=== PATIENT | male | born 1980 | race Caucasian/White ===

== ENCOUNTER 2024-04-22 07:31 | Day surgery (SDC) | payer OTHER, SELFPAY ==
[2024-02-20 12:45] VITALS: BMI 26.9
[2024-04-11 10:44] VITALS: BMI 25.8
--- NOTE | 2024-04-15 10:31 | PM.HPGS ---
History of Present Illness History of Present Illness Consent: Risks, benefits, and alternatives have been discussed and questions answered. Patient agrees to proceed with procedure. Chief complaint: Neoplasm Screening Narrative: Arturo Garcia is a 44 year old male who is referred for colon cancer screening. [facility] Past Medical History Medical History (Updated 02/13/24 @ 10:16 by Vin Brink MD) BMI 26.0-26.9,adult BMI 27.0-27.9,adult BMI 28.0-28.9,adult Chronic anxiety Colon cancer screening Encounter for screening for other viral diseases Encounter for wellness examination in adult Mild intermittent asthma in adult without complication Mixed hyperlipidemia Total cholesterol 204, triglycerides 56, HDL 65 and LDL 124 on 11/10/2021. cholesterol 231, HDL 68, triglycerides 84, LDL 144 with ratio 3.4 on 02/07/2024. Overweight (BMI 25.0-29.9) Post herpetic neuralgia (09/27/23) right C7 herpes zoster Protein in urine Urinalysis normal on 02/07/2024. Seasonal allergic rhinitis Shift work sleep disorder Tinea corporis Weakness of right upper extremity (~09/2023) Family History Family History (Updated 07/23/19 @ 15:19 by Tatum Garrett MA) Mother Hypertension Father Asthma Social History Social History Smoking status: Never smoker Second hand tobacco smoke exposure: No Alcohol intake: current Drinks per week: 6 Substance use: never Substance use type: does not use Living arrangements: with family Occupation/Education: occupation Gender identity (if verbalized by the patient): Male Spiritual care concerns: No Meds Home Medications and Allergies Home Medications Medication Instructions Recorded Confirmed Type No Home Medications 04/11/24 04/11/24 History Allergies Allergy/AdvReac Type Severity Reaction Status Date / Time No Known Allergies Allergy Verified 04/11/24 10:43 Assessment and Plan Assessment and plan (1) Colon cancer screening: Code(s): Z12.11 - Encounter for screening for malignant neoplasm of colon Status: Acute Assessment and Plan: Colonoscopy with possible biopsy or polypectomy or cautery or injection of substances.
--- NOTE | 2024-04-22 07:06 | WPDANESEPPF ---
Anes - Initial Pre Proc Eval Procedure: Operation Date: 04/22/24 09:00 Proposed Procedures p Screening Colonoscopy - Henrique Mccain MD Date/Time: 04/22/24 07:06 Surgeon: Henrique Mccain MD Pre Op Diagnosis: Neoplasm Screening Patient Data Age: 44 Gender: M Height: 1.8 m Weight: 84 kg Allergies Allergy/AdvReac Type Severity Reaction Status Date / Time No Known Allergies Allergy Verified 04/22/24 07:46 Home Medications Medication Instructions Recorded Confirmed Type cetirizine 10 mg tablet (Zyrtec) 10 mg PO DAILY PRN Allergy Symptoms 04/22/24 04/22/24 History Patient hx anesthesia problems: none Family hx anesthesia problems: none Results Review: All pre-operative results and documents have been reviewed as part of the pre-operative evaluation. [facility] Past Medical History Medical History (Updated 02/13/24 @ 10:16 by Vin Brink MD) BMI 26.0-26.9,adult BMI 27.0-27.9,adult BMI 28.0-28.9,adult Chronic anxiety Colon cancer screening Encounter for screening for other viral diseases Encounter for wellness examination in adult Mild intermittent asthma in adult without complication Mixed hyperlipidemia Total cholesterol 204, triglycerides 56, HDL 65 and LDL 124 on 11/10/2021. cholesterol 231, HDL 68, triglycerides 84, LDL 144 with ratio 3.4 on 02/07/2024. Overweight (BMI 25.0-29.9) Post herpetic neuralgia (09/27/23) right C7 herpes zoster Protein in urine Urinalysis normal on 02/07/2024. Seasonal allergic rhinitis Shift work sleep disorder Tinea corporis Weakness of right upper extremity (~09/2023) Family History Family History (Updated 07/23/19 @ 15:19 by Tatum Garrett MA) Mother Hypertension Father Asthma Social History Social History Smoking status: Never smoker Second hand tobacco smoke exposure: No Alcohol intake: current Drinks per week: 6 Substance use: never Substance use type: does not use Living arrangements: with family Occupation/Education: occupation Gender identity (if verbalized by the patient): Male Spiritual care concerns: No Anes - Eval Final PreProcedure Day of Procedure 04/22/24 07:06 Patient weight: overweight Heart: regular rate and rhythm Lungs: clear to auscultation Airway: Mallampati scale class II Neurological: alert and oriented Last oral intake: >/= 8 hours ASA classification: II Emergent: no Anesthetic plan: proceed Anesthesia type and monitoring: general GIVS and standard monitoring Results Review: All pre-operative results and documents have been reviewed as part of the pre-operative evaluation. Informed Consent: The patient's anesthetic plan and its attendant risks and benefits were discussed with the patient/family/POA. Questions were solicited and answers provided to the satisfaction of the patient/family/POA.
[2024-04-22 07:48] VITALS: BP 109/80; PULSE 60; RESP 16; TEMP 36.7; O2SAT 100
[2024-04-22] MEDS: LACTATED RINGERS 1,000 ML 150 ML IV CONT ×2 (07:56→09:47)
--- NOTE | 2024-04-22 09:20 | PM.HPGS ---
History of Present Illness History of Present Illness Consent: Risks, benefits, and alternatives have been discussed and questions answered. Patient agrees to proceed with procedure. Chief complaint: Neoplasm Screening Narrative: Arturo Garcia is a 44 year old male presents for screening colonoscopy. Patient's current weight appetite and bowel movements are normal. Patient denies abdominal pain. He has had no bleeding. Family history noncontributory. Review of Systems Review of Systems: All systems reviewed & are unremarkable except as noted in HPI and below PMFSH Past Medical History Medical History (Updated 02/13/24 @ 10:16 by Vin Brink MD) BMI 26.0-26.9,adult BMI 27.0-27.9,adult BMI 28.0-28.9,adult Chronic anxiety Colon cancer screening Encounter for screening for other viral diseases Encounter for wellness examination in adult Mild intermittent asthma in adult without complication Mixed hyperlipidemia Total cholesterol 204, triglycerides 56, HDL 65 and LDL 124 on 11/10/2021. cholesterol 231, HDL 68, triglycerides 84, LDL 144 with ratio 3.4 on 02/07/2024. Overweight (BMI 25.0-29.9) Post herpetic neuralgia (09/27/23) right C7 herpes zoster Protein in urine Urinalysis normal on 02/07/2024. Seasonal allergic rhinitis Shift work sleep disorder Tinea corporis Weakness of right upper extremity (~09/2023) Family History Family History (Updated 07/23/19 @ 15:19 by Tatum Garrett MA) Mother Hypertension Father Asthma Social History Social History Smoking status: Never smoker Second hand tobacco smoke exposure: No Alcohol intake: current Drinks per week: 6 Substance use: never Substance use type: does not use Living arrangements: with family Occupation/Education: occupation Gender identity (if verbalized by the patient): Male Spiritual care concerns: No Meds Home Medications and Allergies Home Medications Medication Instructions Recorded Confirmed Type cetirizine 10 mg tablet (Zyrtec) 10 mg PO DAILY PRN Allergy Symptoms 04/22/24 04/22/24 History Allergies Allergy/AdvReac Type Severity Reaction Status Date / Time No Known Allergies Allergy Verified 04/22/24 07:46 Vital Signs Vital Signs - 24 hr 04/22/24 07:48 Temperature 98.1 F Pulse Rate 60 Respiratory Rate 16 Blood Pressure 109/80 Pulse Oximetry 100 Oxygen Delivery Room Air Exam Narrative: Physical exam reveals patient to be alert vital signs stable. HEENT exam is unremarkable. Patient is anicteric. Lungs are clear to auscultation and percussion. Heart is without murmur or extra sounds. Abdomen bowel sounds are present soft nontender with no organomegaly. Digital external rectal exam normal. Assessment and Plan Assessment and plan (1) Colon cancer screening: Code(s): Z12.11 - Encounter for screening for malignant neoplasm of colon Status: Acute Assessment and Plan: Patient presents for screening colonoscopy . Appears to be at average risk for colon polyps. Further recommendations may be given after endoscopy.
[2024-04-22 09:49] VITALS: BP 110/75; PULSE 65; RESP 16; O2SAT 98
[2024-04-22 09:59] VITALS: BP 108/75; PULSE 62; RESP 16; O2SAT 100
[2024-04-22 10:09] VITALS: BP 117/89; PULSE 65; RESP 16; O2SAT 100
--- NOTE | 2024-04-22 11:22 | WPDANESPN ---
Anes - Prog Note Post-Op Date/Time: 04/22/24 11:22 Cardiovascular status: normal Respiratory status: normal Airway patency: baseline Mental status: baseline Post-Op hydration status: normal Vital Signs: Last Vital Signs Temp 36.7 C 04/22/24 07:48 Pulse 65 04/22/24 10:09 Resp 16 04/22/24 10:09 BP 117/89 04/22/24 10:09 Pulse Ox 100 04/22/24 10:09 O2 Del Method Room Air 04/22/24 10:09 Pain Score (VAS): 0 I/O: Intake & Output 04/21/24 04/22/24 04/22/24 23:59 07:59 15:59 Intake Total 1050 Balance 1050 Post-procedural complaints: none Patient Feedback: Patient satisfied with anesthetic care. Other Findings: Patient vital signs back to baseline. Patient denies nausea and vomiting. Patient's pain under control. Patient OK for discharge.
== END 2024-04-22 10:13 | disposition home or self-care (01) ==
PROVIDERS: PCP Family Medicine; Visit Provider Internal Medicine Gastroenterology
PROC: 0DJD8ZZ Inspection of Lower Intestinal Tract, Via Natural or Artificial Opening Endoscopic (ICD-10-PCS; CPT 45378; principal; 2024-04-22 09:00)
DX: Z12.11 Encounter for screening for malignant neoplasm of colon (principal); D12.5 Benign neoplasm of sigmoid colon; K57.30 Diverticulosis of large intestine without perforation or abscess without bleeding
CPT/HCPCS: 45385

== ENCOUNTER 2024-04-23 08:12 | Outpatient (NON) | payer OTHER, SELFPAY | END 2024-04-23 08:13 | disposition home or self-care (01) | LOC: ANHLAB 08:15 | PROVIDERS: PCP Family Medicine; Visit Provider Internal Medicine Gastroenterology | DX: K63.5 Polyp of colon (principal) | CPT/HCPCS: 88305 ==